=== PATIENT | female | born 2000 | race Caucasian/White ===

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

== ENCOUNTER 2019-07-03 04:13 | Outpatient (CLI) | payer MEDICAID ==
[~2019-07-03] VITALS: Ht 170.2 cm; Wt 102.0 kg
[2019-07-03 04:28] VITALS: BP 126/74
== END 2019-07-03 05:40 | disposition home or self-care (01) ==
LOC: LDOP 04:13
PROVIDERS: ATTEND Obstetrics & Gynecology
DX: O26.893 Other specified pregnancy related conditions, third trimester (principal); R10.9 Unspecified abdominal pain; M54.9 Dorsalgia, unspecified; Z3A.31 31 weeks gestation of pregnancy
CPT/HCPCS: 59025; 81001; 87077; 87086; 87186; 99211; G0463

== ENCOUNTER 2020-09-11 10:03 | Emergency (ER) | payer MEDICAID ==
[~2020-09-11] VITALS: Ht 170.2 cm; Wt 113.0 kg
[~2020-09-11 10:03] MED LIST: NITR100C56 PO; PREN1TAB60 PO
[2020-09-11] MEDS ORDERED: ONDANSETRON 2MG/ML, 2ML IVPush ONE (10:30)
[2020-09-11] MEDS ORDERED: MORPHINE SULFATE 4 MG/ML, 1ML IVPush PRN (10:30)
[2020-09-11] MEDS ORDERED: SODIUM CHLORIDE FLUSH 10ML SYR IVF ONE (10:30)
[2020-09-11] MEDS ORDERED: MORPHINE SULFATE 4 MG/ML, 1ML ONE (10:52)
[2020-09-11] MEDS ORDERED: ONDANSETRON 2MG/ML, 2ML ONE (10:52)
--- NOTE | 2020-09-11 10:56 | NUR ---
IV STARTED, PT MEDICATED FOR PAIN PER EMAR. PT IN HOSPITAL GOWN. PT GOING TO US AT THIS TIME.
[2020-09-11 11:09] LABS: BASOPHILS % (AUTO) 1 % (0-1); EOSINOPHILS % (AUTO) 4 % (1-7); LYMPHOCYTES % (AUTO) 27 % (22-44); MEAN CORPUSCULAR HEMOGLOBIN 28.6 pg (27.0-34.8); MEAN CORPUSCULAR HGB CONC 32.9 g/dL (32.4-35.8); MEAN PLATELET VOLUME 9.4 fL (7.4-10.4); MONOCYTES % (AUTO) 15 % (2-9); NEUTROPHILS % (AUTO) 53 % (42-75); PLATELET COUNT 274 x10^3/uL (130-400); RED CELL DISTRIBUTION WIDTH 14.2 % (9.6-15.2)
[2020-09-11 11:14] LABS: MD NO
[2020-09-11 11:20] LABS: ALANINE AMINOTRANSFERASE 31 U/L (12-78); ALBUMIN 3.8 g/dL (3.4-5.0); ANION GAP 6 mmol/L (5-15); CALCIUM 8.9 mg/dL (8.5-10.1); CHLORIDE 112 mmol/L (98-107)
[2020-09-11 11:24] LABS: ALKALINE PHOSPHATASE 106 U/L (45-117); BILIRUBIN,TOTAL 0.5 mg/dL (0.2-1.0); TOTAL PROTEIN 7.7 g/dL (6.4-8.2)
--- NOTE | 2020-09-11 11:26 | NUR ---
PT BACK FROM US. PT PROVIDED URINE SAMPLE. URINE WALKED TO LAB. PT ON VITALS MONITORS.
[2020-09-11 11:52] LABS: MICROSCOPIC AUTO
--- NOTE | 2020-09-11 12:33 | NUR ---
PT RESTING CALMLY IN BED ON CELL PHONE. PT MOTHER AT BEDSIDE. PT AWARE OF ORDERED CT PT ON VITALS MONITORS.
[2020-09-11 14:47] LABS: MICROSCOPIC AUTO
[2020-09-11] MEDS ORDERED: CEFTRIAXONE PMX 1GM/50ML 50 ML ONE (15:59)
[2020-09-11] MEDS ORDERED: SODIUM CHLORIDE 0.9% 1,000ML IVBOLUS ONE (16:00)
[2020-09-11] MEDS ORDERED: CEFTRIAXONE PMX 1GM/50ML 50 ML IV ONE (16:00)
[2020-09-11 17:03] VITALS: BP 117/69
== END 2020-09-11 17:28 | disposition home or self-care (01) ==
LOC: ED 11:38
DX: N39.0 Urinary tract infection, site not specified (principal); N20.0 Calculus of kidney; N23 Unspecified renal colic
CPT/HCPCS: 36415; 74176; 76830; 80053; 81001; 84703; 85025; 87077; 87086; 96365; 96375; 99285; J0696; J2270; J2405; J7030; 87186

== ENCOUNTER 2020-11-12 19:45 | Emergency (ER) | payer MEDICAID ==
[~2020-11-12] VITALS: Ht 170.2 cm; Wt 116.1 kg
[2020-11-12 20:30] VITALS: BP 130/86
== END 2020-11-12 22:28 | disposition home or self-care (01) ==
LOC: ED 22:20
DX: B34.9 Viral infection, unspecified (principal); Z20.828 Contact with and (suspected) exposure to other viral communicable diseases; R05 Cough
CPT/HCPCS: 87635; 99283